=== PATIENT | female | born 1935 | race Caucasian/White ===

== ENCOUNTER 2019-03-31 23:04 | Inpatient (IN) ==
[2019-04-01] MEDS ORDERED: MEPERIDINE 50 MG/1 ML VIAL IV STA (01:00)
[2019-04-01] MEDS ORDERED: ONDANSETRON 4 MG/2 ML VIAL IV ONE (01:00)
[2019-04-01] MEDS ORDERED: MEPERIDINE 25 MG/1 ML VIAL IV STA (01:04)
[2019-04-01] MEDS ORDERED: ONDANSETRON 4 MG/2 ML VIAL IV PRN (02:31)
[2019-04-01 04:05] LABS: Basophils # 0.1 10*3/uL (0.0-0.2); Basophils % 0.6 % (0.0-0.8); Eosinophils # 0.1 10*3/uL (0.0-0.87); Eosinophils % 1.2 % (0.00-10.9); Hematocrit 34.3 VOL% (35.7-47.0); Hemoglobin 10.5 GM/DL (12.0-16.0); Immature Granulocytes % 0.6 %; Immature Granulocytes Absolute 0.06 #; Lymphocytes # 1.1 10*3/uL (1.4-4.0); Lymphocytes % 10.7 % (21.3-54.2); Mean Corpuscular HGB Conc 30.6 GM/DL (32-36); Mean Corpuscular Volume 98.8 FL (87-102); Mean Platelet Volume 10.3 FL (9.6-12.0); Monocytes % 6.1 % (1.7-12.7); Neutrophils % 80.8 % (38.7-73.9); Platelet Count 191 T/CUMM (130-400); Red Blood Count 3.47 MC/CUMM (3.8-5.5); Red Cell Distribution Width 13.4 % (9.3-17.3)
[2019-04-01 04:18] LABS: PT Patient Result 10.7 SECS; Partial Thromboplastin Time 24.7 SECS (0-40)
[2019-04-01 04:44] LABS: Albumin 3.7 G/DL (3.4-5.0); Bilirubin,Total 0.7 MG/DL (0.2-1.0); Osmolality,Calculated 278.4 MOS/KG (273-304); Total Protein 6.6 G/DL (6.4-8.3)
[2019-04-01] MEDS ORDERED: ALBUTEROL/IPRATROPIUM 3 ML NEB RESP TX PRN (05:24)
[2019-04-01] MEDS ORDERED: ceFAZolin 1,000 MG in SYRINGE 1 EACH IV ONE (06:17)
[2019-04-01] MEDS ORDERED: oxyCODONE/ACETAMINOPHEN 5-325 MG TABLET PO PRN (06:18)
[2019-04-01] MEDS ORDERED: BACITRACIN OINT 0.9 GM PACK TOP ONE (07:05)
[2019-04-01] MEDS ORDERED: SENNA 8.6 MG TABLET PO PRN (07:44)
[2019-04-01] MEDS ORDERED: ALBUTEROL 2.5 MG/3 ML NEB RESP TX PRN (07:44)
[2019-04-01] MEDS: ARFORMOTEROL 15 MCG/2 ML NEB RESP TX SCH ×3 (07:47→20:04)
[2019-04-01] MEDS: BUDESONIDE 0.5 MG/2 ML NEB RESP TX SCH ×3 (07:47→20:04)
[2019-04-01] MEDS ORDERED: ENOXAPARIN 30 MG/0.3 ML SYRINGE SUBCUT SCH (09:00)
[2019-04-01] MEDS: IPRATROPIUM 500 MCG/2.5 ML NEB RESP TX SCH ×4 (09:15→20:04)
[2019-04-01] MEDS ORDERED: PROPOFOL 200 MG/20 ML VIAL IV ONE (09:15)
[2019-04-01] MEDS ORDERED: fentaNYL 100 MCG/2 ML VIAL ONE (09:16)
[2019-04-01] MEDS ORDERED: SODIUM CHLORIDE 0.9% 1,000 ML IV ONE (09:16)
[2019-04-01] MEDS: GABAPENTIN 300 MG CAPSULE PO SCH ×4 (12:06→20:36)
[2019-04-01] MEDS: oxyCODONE/ACETAMINOPHEN 5-325 MG TABLET PO PRN ×2 (12:07→20:57)
[2019-04-01] MEDS: MORPHINE 4 MG/1 ML VIAL IV PRN ×3 (14:16→19:53)
[2019-04-01] MEDS: NICOTINE 21 MG/24 HR PATCH TRANSDERM SCH (14:24)
[2019-04-01] MEDS: ceFAZolin 1,000 MG in SYRINGE 1 EACH IV SCH ×2 (14:24→20:36)
[2019-04-01] MEDS: FLUTICASONE/SALMETEROL 250-50 DISKUS 14 DOSE INH SCH ×2 (14:25→20:38)
[2019-04-01] MEDS: diphenhydrAMINE CAP 25 MG CAPSULE PO SCH ×4 (14:26→20:36)
[2019-04-01] MEDS: POTASSIUM CHLORIDE INJ 20 MEQ in LACTATED RINGERS 1,000 ML IV SCH (14:36)
[2019-04-01] MEDS: PANTOPRAZOLE 40 MG TABLET PO SCH (14:49)
[2019-04-01] MEDS: THEOPHYLLINE ER (24 HR) 400 MG CAPSULE PO SCH (14:50)
[2019-04-01] MEDS: MULTIVITAMIN (CENTRUM) TABLET PO SCH (20:35)
[2019-04-01] MEDS: DOCUSATE SODIUM 100 MG CAPSULE PO PRN (20:36)
[2019-04-01] MEDS: LATANOPROST 0.005% OPH SOLN 2.5 ML BOTTLE BOTH EYES SCH (21:11)
[2019-04-02] MEDS: MORPHINE 4 MG/1 ML VIAL IV PRN ×5 (02:19→21:51)
[2019-04-02] MEDS: POTASSIUM CHLORIDE INJ 20 MEQ in LACTATED RINGERS 1,000 ML IV SCH (04:31)
[2019-04-02] MEDS: oxyCODONE/ACETAMINOPHEN 5-325 MG TABLET PO PRN ×3 (04:32→16:47)
[2019-04-02 05:09] LABS: Basophils # 0.1 10*3/uL (0.0-0.2); Basophils % 0.6 % (0.0-0.8); Eosinophils # 0.1 10*3/uL (0.0-0.87); Eosinophils % 0.9 % (0.00-10.9); Hematocrit 34.2 VOL% (35.7-47.0); Hemoglobin 10.6 GM/DL (12.0-16.0); Immature Granulocytes % 0.3 %; Immature Granulocytes Absolute 0.03 #; Lymphocytes # 0.8 10*3/uL (1.4-4.0); Lymphocytes % 8.7 % (21.3-54.2); Mean Corpuscular Volume 96.6 FL (87-102); Mean Platelet Volume 10.3 FL (9.6-12.0); Monocytes % 8.1 % (1.7-12.7); Neutrophils % 81.4 % (38.7-73.9); Platelet Count 154 T/CUMM (130-400); Red Blood Count 3.54 MC/CUMM (3.8-5.5); Red Cell Distribution Width 13.5 % (9.3-17.3); White Blood Count 8.6 T/CUMM (4-12)
[2019-04-02 05:21] LABS: Calcium 9.1 MG/DL (8.5-10.1)
[2019-04-02] MEDS: ARFORMOTEROL 15 MCG/2 ML NEB RESP TX SCH ×2 (07:40→19:44)
[2019-04-02] MEDS: IPRATROPIUM 500 MCG/2.5 ML NEB RESP TX SCH ×4 (07:40→19:44)
[2019-04-02] MEDS: BUDESONIDE 0.5 MG/2 ML NEB RESP TX SCH ×2 (07:41→19:44)
[2019-04-02] MEDS: THEOPHYLLINE ER (24 HR) 400 MG CAPSULE PO SCH (08:54)
[2019-04-02] MEDS: LISINOPRIL 20 MG TABLET PO SCH (08:54)
[2019-04-02] MEDS: diphenhydrAMINE CAP 25 MG CAPSULE PO SCH ×4 (08:54→21:06)
[2019-04-02] MEDS: PANTOPRAZOLE 40 MG TABLET PO SCH (08:54)
[2019-04-02] MEDS: GABAPENTIN 300 MG CAPSULE PO SCH ×4 (08:54→21:06)
[2019-04-02] MEDS: FONDAPARINUX 2.5 MG/0.5 ML SYRINGE SUBCUT SCH (08:55)
[2019-04-02] MEDS: NICOTINE 21 MG/24 HR PATCH TRANSDERM SCH (08:56)
[2019-04-02] MEDS: FLUTICASONE/SALMETEROL 250-50 DISKUS 14 DOSE INH SCH ×2 (08:59→21:10)
[2019-04-02] MEDS: LATANOPROST 0.005% OPH SOLN 2.5 ML BOTTLE BOTH EYES SCH (21:05)
[2019-04-02] MEDS: DOCUSATE SODIUM 100 MG CAPSULE PO PRN (21:06)
[2019-04-02] MEDS: MULTIVITAMIN (CENTRUM) TABLET PO SCH (21:06)
[2019-04-03] MEDS: MORPHINE 4 MG/1 ML VIAL IV PRN ×4 (03:39→21:05)
[2019-04-03 04:56] LABS: Basophils % 0.4 % (0.0-0.8); Eosinophils # 0.1 10*3/uL (0.0-0.87); Eosinophils % 1.5 % (0.00-10.9); Hematocrit 31.4 VOL% (35.7-47.0); Hemoglobin 9.7 GM/DL (12.0-16.0); Immature Granulocytes % 0.4 %; Immature Granulocytes Absolute 0.03 #; Lymphocytes # 0.8 10*3/uL (1.4-4.0); Lymphocytes % 11.4 % (21.3-54.2); Mean Corpuscular HGB Conc 30.9 GM/DL (32-36); Mean Corpuscular Volume 96.6 FL (87-102); Mean Platelet Volume 10.1 FL (9.6-12.0); Monocytes % 9.3 % (1.7-12.7); Platelet Count 148 T/CUMM (130-400); Red Blood Count 3.25 MC/CUMM (3.8-5.5); Red Cell Distribution Width 13.4 % (9.3-17.3); White Blood Count 7.2 T/CUMM (4-12)
[2019-04-03] MEDS: ARFORMOTEROL 15 MCG/2 ML NEB RESP TX SCH ×2 (07:00→19:10)
[2019-04-03] MEDS: IPRATROPIUM 500 MCG/2.5 ML NEB RESP TX SCH ×4 (07:00→19:10)
[2019-04-03] MEDS: BUDESONIDE 0.5 MG/2 ML NEB RESP TX SCH ×2 (07:00→19:10)
[2019-04-03] MEDS: THEOPHYLLINE ER (24 HR) 400 MG CAPSULE PO SCH (08:36)
[2019-04-03] MEDS: LISINOPRIL 20 MG TABLET PO SCH (08:36)
[2019-04-03] MEDS: PANTOPRAZOLE 40 MG TABLET PO SCH (08:37)
[2019-04-03] MEDS: GABAPENTIN 300 MG CAPSULE PO SCH ×4 (08:37→21:04)
[2019-04-03] MEDS: NICOTINE 21 MG/24 HR PATCH TRANSDERM SCH (08:37)
[2019-04-03] MEDS: diphenhydrAMINE CAP 25 MG CAPSULE PO SCH ×4 (08:37→21:05)
[2019-04-03] MEDS: FONDAPARINUX 2.5 MG/0.5 ML SYRINGE SUBCUT SCH (08:41)
[2019-04-03] MEDS: FLUTICASONE/SALMETEROL 250-50 DISKUS 14 DOSE INH SCH ×2 (08:41→21:09)
[2019-04-03] MEDS: oxyCODONE/ACETAMINOPHEN 5-325 MG TABLET PO PRN (14:34)
[2019-04-03] MEDS: MULTIVITAMIN (CENTRUM) TABLET PO SCH (21:04)
[2019-04-03] MEDS: DOCUSATE SODIUM 100 MG CAPSULE PO PRN (21:04)
[2019-04-03] MEDS: LATANOPROST 0.005% OPH SOLN 2.5 ML BOTTLE BOTH EYES SCH (21:05)
[2019-04-04] MEDS: MORPHINE 4 MG/1 ML VIAL IV PRN (04:39)
[2019-04-04] MEDS: MAGNESIUM HYDROXIDE SUSP 30 ML UDCUP PO PRN ×2 (04:39→12:43)
[2019-04-04 05:08] LABS: Basophils % 0.4 % (0.0-0.8); Eosinophils # 0.2 10*3/uL (0.0-0.87); Eosinophils % 2.8 % (0.00-10.9); Hematocrit 30.7 VOL% (35.7-47.0); Hemoglobin 9.4 GM/DL (12.0-16.0); Immature Granulocytes % 0.4 %; Immature Granulocytes Absolute 0.02 #; Lymphocytes # 0.9 10*3/uL (1.4-4.0); Lymphocytes % 15.9 % (21.3-54.2); Mean Corpuscular HGB Conc 30.6 GM/DL (32-36); Mean Corpuscular Volume 97.5 FL (87-102); Mean Platelet Volume 10.3 FL (9.6-12.0); Monocytes % 11.2 % (1.7-12.7); Neutrophils % 69.3 % (38.7-73.9); Platelet Count 157 T/CUMM (130-400); Red Blood Count 3.15 MC/CUMM (3.8-5.5); Red Cell Distribution Width 13.7 % (9.3-17.3); White Blood Count 5.3 T/CUMM (4-12)
[2019-04-04] MEDS: ARFORMOTEROL 15 MCG/2 ML NEB RESP TX SCH (06:58)
[2019-04-04] MEDS: BUDESONIDE 0.5 MG/2 ML NEB RESP TX SCH (06:58)
[2019-04-04] MEDS: IPRATROPIUM 500 MCG/2.5 ML NEB RESP TX SCH ×2 (06:58→10:43)
[2019-04-04] MEDS: FONDAPARINUX 2.5 MG/0.5 ML SYRINGE SUBCUT SCH (08:18)
[2019-04-04] MEDS: diphenhydrAMINE CAP 25 MG CAPSULE PO SCH ×2 (08:19→12:42)
[2019-04-04] MEDS: GABAPENTIN 300 MG CAPSULE PO SCH ×2 (08:19→12:42)
[2019-04-04] MEDS: THEOPHYLLINE ER (24 HR) 400 MG CAPSULE PO SCH (08:19)
[2019-04-04] MEDS: PANTOPRAZOLE 40 MG TABLET PO SCH (08:19)
[2019-04-04] MEDS: LISINOPRIL 20 MG TABLET PO SCH (08:19)
[2019-04-04] MEDS: NICOTINE 21 MG/24 HR PATCH TRANSDERM SCH (08:21)
[2019-04-04] MEDS: FLUTICASONE/SALMETEROL 250-50 DISKUS 14 DOSE INH SCH (08:22)
[2019-04-04 11:28] VITALS: BP 93/58
== END 2019-04-04 13:38 | DRG 481 ==
LOC: EDBD → EDUNIT# → N.ED 23:04 → N.EDINP 04-01 02:32 → N.3E 04-01 02:52
PROVIDERS: ADMIT Hospitalist; ATTEND Hospitalist